=== PATIENT | male | born 1990 | race Caucasian/White ===

== ENCOUNTER 2024-04-09 20:14 | Emergency (ER) | payer MEDICAID ==
[~2024-04-09] VITALS: Ht 162.6 cm; Wt 80.0 kg
[2024-04-09 21:26] VITALS: O2SAT 100
[2024-04-09] MEDS: KETOROLAC 15MG/ML VIAL IM ONE (22:50)
[2024-04-09] MEDS ORDERED: NAPR-1176 MT (23:10)
[2024-04-10 01:00] VITALS: BP 132/84; PULSE 62; RESP 20; TEMP 98.3
== END 2024-04-10 01:15 | disposition home or self-care (01) ==
LOC: ER 20:14
DX: M25.571 Pain in right ankle and joints of right foot (principal)
CPT/HCPCS: 99283; 73610; 96372; J1885